=== PATIENT | male | born 1945 | race Caucasian/White ===

== ENCOUNTER 2016-05-10 23:00 | Inpatient (IN) | payer MEDICARE ==
[~2016-05-10] VITALS: Ht 175.3 cm; Wt 63.7 kg
[~2016-05-10 23:00] MED LIST: ASMANEX0.24 GM INH; BACLOFEN10 MG PO; CARDIZEM 90 MG90 MG PO; COZAAR25 MG PO; FUROSEMIDE40 MG PO; GLUCOPHAGE500 MG PO; GLUCOTROL XL 1010 MG PO; K-DUR20 MEQ PO; LIPITOR10 MG PO; OMEPRAZOLE20 M1 PO; SPIRIVA RESPIMAT4 G1 INH; ULTRAM50 MG PO; ZITHROMAX500 MG PO
[2016-05-10 23:48] LABS: BASOPHILS 0.2 % (0.0-2.0); EOSINOPHILS 0.9 % (0-7); HEMATOCRIT 43.9 % (42.0-54.0); HEMOGLOBIN 13.6 g/dL (13.5-17.5); IMMATURE GRANULOCYTES 1.1 % (0-5); MCH 28.5 pg (26.0-34.0); MCV 91.8 fL (80.0-100.0); MEAN PLATELET VOLUME 11.7 fL (7.4-10.4); MONOCYTES 8.5 % (2-11); NEUTROPHILS 70.3 % (40-80); PLATELET COUNT 201 10x3/uL (130-400); RBC 4.78 10x6/uL (4.20-6.10); RDW 13.9 % (11.5-14.5); WBC 15.6 10x3/uL (4.8-10.8)
[2016-05-11] VITALS (26 sets, daily range): BP systolic 114–153; BP diastolic 68–98; Ht 175.3 cm; Wt 63.7 kg
[2016-05-11 00:01] LABS: APTT 28.9 SECONDS (22.8-39.4); INR 1.01 (0.85-1.17); PROTIME 13.1 SECONDS (11.6-15.0)
[2016-05-11 00:13] LABS: ALKALINE PHOSPHATASE 99 U/L (46-116); ALT (SGPT) 37 U/L (10-68); BILIRUBIN - TOTAL 0.41 mg/dL (0.2-1.3); CALC OSMOLALITY 285 mosm/kg (275-300); CALCIUM 8.8 mg/dL (8.5-10.1); CARBON DIOXIDE 33.5 mmol/L (21.0-32.0); CHLORIDE - SERUM 101 mmol/L (98-107); CREATINE KINASE 27 UL (21-232); CREATININE - SERUM 0.5 mg/dL (0.6-1.3); GLUCOSE 218 mg/dL (74-106); POTASSIUM - SERUM 4.5 mmol/L (3.5-5.1); PRO BNP 167 pg/mL (0-125); PROTEIN - SERUM 7.6 g/dL (6.4-8.2); SODIUM 140 mmol/L (136-145); UREA NITROGEN 12 mg/dL (7-18); eGFR NON AFRICAN AMERICAN > 90 mL/min (90-120)
[2016-05-11 00:19] LABS: TROPONIN-I < 0.017 ng/mL (0.000-0.060)
--- NOTE | 2016-05-11 03:00 | NUR ---
RECEIVED PT TO ROOM 2310 FROM ICU. ARRIVED ON STRETCHER WITH 2LO2 FOR TRANSPORT. TRANSFERRED TO BED AND IMMEDIATELY PLACED BACK ON 35% BIPAP HE HAD BEEN ON IN ER. PT WAS QUITE SOB AND USING ACCESSORY MUSCLES. PT CONNECTED TO STANDARD ICU MONITORING AND ALL ALARMS SET. ADMISSION HISTORY AND ASSESSMENT COMPLETED.
--- NOTE | 2016-05-11 03:30 | NUR ---
AND DAUGHTER HERE. CODE WORD ESTABLISHED. STATED HIS MEDICATION WAS ESSENTIALLY THE SAME LAST ADMISSION BUT A FEW CHANGES SHE COULDN'T EXACTLY REMEMBER. TO BRING PT'S MEDICATION BOTTLES WHEN SHE COMES FOR THE 0900 VISIT TODAY TO CONFIRM CURRENT MEDS AND DOSES. [facility] AND REFUSES TRANFER WELL. PT RESPIRATORY STATUS IS LESS LABORED. TOLERATING THE BIPAP WITHOUT DIFFICULTY.
--- NOTE | 2016-05-11 14:16 | NUR ---
05/11/2016 14:13 CM: Case Management CM spoke with patient regarding transfer to [facility] in [place]. Patient does not want to transfer. He requests he stay here at [facility] and use his [facility] benefits. Notified Christiana White.
--- NOTE | 2016-05-11 19:00 | NUR ---
Assessment complete. See flowsheet. Pt awake and resting on back with HOB @ 20 degrees. Respirations unlabored with purse-lip breathing noted. Pt pulled up in bed with HOB elevated to 30 degrees. Pt receiving O2 @ 2L NC. Lung sounds diminished to all jeffrey with expiratory wheezing noted to [place]. HR ST 119BPM with S1S2 auscultated. Radial pulses +2 bilaterally with dorsalis pedis pulses weak/palpable with 1+ pitting edema noted to lower extremities bilaterally. Right forearm PIV site CDI no s/s infection or infiltration with NS infusing @ 5cc/hr KVO rate. Left forearm PIV site CDI; saline locked. Abdomen soft, distended with BS present to all quadrants. SCDs secure bilaterally. Pt urinal within reach on bedside table. Pain denied. Heels bridged. Call light and bedside table within reach. NO request at this time. CPOC.
--- NOTE | 2016-05-11 21:00 | NUR ---
Pt on BIPAP for UDTX and taken off after treatment. Pt denies further needs at this time and self-positions for comfort. VSS. Call light and bedside table remain within pt reach. CPOC.
--- NOTE | 2016-05-11 23:00 | NUR ---
Reassessment complete. See flowsheet. Pt helped to bedpan for large, formed brown BM approx 500cc. NO neuro changes to note. Pt SOB with diminished lung jeffrey. BIPAP back on FiO2 35%. SPO2 97%. HR ST 120s with S1S2 auscultated. PIV sites CDI; unchanged with NO IVF changes to note. BS +. Pt helped up into bed. Partial linen changes completed. NO other changes to note. Pt denies further needs at this time. Call light and bedside table remain within reach. CPOC.
[2016-05-12] VITALS (24 sets, daily range): BP systolic 106–158; BP diastolic 69–100
--- NOTE | 2016-05-12 01:00 | NUR ---
Pt resting quietly with BIPAP mask secure and no s/s pain or distress. Pt allowed to continue resting undisturbed. Call light and bedside table remain within pt reach. VSS. CPOC.
--- NOTE | 2016-05-12 03:00 | NUR ---
Reassessment complete. See flowsheet. Pt resting quietly with BIPAP mask secure @ FiO2 35%. Pt awakens easily to verbal stimulation with no neuro changes to note. Lung sounds remain diminished to all jeffrey. BS +. Pt continues to self-position for comfort. BS +. PIV sites remain CDI no s/s infection with NO IVF changes to note. Pt denies pain or further needs at this time. Call light and bedside table remain within pt reach. CPOC.
--- NOTE | 2016-05-12 04:29 | NUR ---
BIPAP mask off per request to O2 @ 2L NC.
--- NOTE | 2016-05-12 05:00 | NUR ---
Pt resting quietly with VSS. No s/s pain or distress and allowed to continue resting undisturbed. Call light and bedside table remain within reach. CPOC.
[2016-05-12 05:30] LABS: BASOPHILS 0 % (0.0-2.0); EOSINOPHILS 0 % (0-7); HEMATOCRIT 38.9 % (42.0-54.0); HEMOGLOBIN 12.3 g/dL (13.5-17.5); IMMATURE GRANULOCYTES 0.4 % (0-5); LYMPHOCYTES 6.1 % (15-50); MCHC 31.6 g/dL (31.0-37.0); MEAN PLATELET VOLUME 11.7 fL (7.4-10.4); NEUTROPHILS 85.5 % (40-80); RDW 13.6 % (11.5-14.5)
[2016-05-12 05:33] LABS: MCV 88.4 fL (80.0-100.0); PLATELET COUNT 140 10x3/uL (130-400); WBC 6.7 10x3/uL (4.8-10.8)
[2016-05-12 05:36] LABS: CALC OSMOLALITY 286 mosm/kg (275-300); CALCIUM 9.2 mg/dL (8.5-10.1); CARBON DIOXIDE 35.6 mmol/L (21.0-32.0); CHLORIDE - SERUM 100 mmol/L (98-107); CREATININE - SERUM 0.6 mg/dL (0.6-1.3); GLUCOSE 234 mg/dL (74-106); SODIUM 140 mmol/L (136-145); UREA NITROGEN 13 mg/dL (7-18); eGFR NON AFRICAN AMERICAN > 90 mL/min (90-120)
[2016-05-12 05:38] LABS: POTASSIUM - SERUM 3.6 mmol/L (3.5-5.1)
--- NOTE | 2016-05-12 09:30 | NUR ---
PLACED ON 2LPM/NC PER PATIENT REQUEST.
--- NOTE | 2016-05-12 11:29 | NUR ---
PLACED BACK ON BIPAP PER ORIGINAL SETTINGS, PER PATIENT REQUEST.
--- NOTE | 2016-05-12 19:00 | NUR ---
Assessment complete. See flowsheet. Pt awake on BIPAP 15 R12 FiO2 35% secure with no leak noted. Pt orientedx4 and following all commands and conversation with 4/5 strength to all extremities. Trace, non-pitting edema noted to lower extremities. SCDs secure. Lung sounds diminished to all jeffrey. No sternal retractions or labored breathing noted. HOB @ 20 degrees. Pt refusing elevating HOB more at this time. HR ST 118BPM with S1S2 auscultated. Radial pulses +2 with dorsalis pedis pulse weak/palpable. Right forearm PIV site CDI no s/s infection or infiltration with NS @ 5cc/hr KVO Rate. Left forearm PIV site CDI; no s/s infection, saline locked. BS + to all quadrants. Urinal emptied of 275cc clear/sergio urine. Pt self-positioning in bed for comfort. Room warmed per request. No c/o pain and no further request at this time. Call light and bedside table remain within pt reach. CPOC.
--- NOTE | 2016-05-12 21:00 | NUR ---
Pt on 2L NC briefly and back on BIPAP mask after sips of water to rest. NO setting changes to note. NO other changes. Pt remains calm and cooperative and denies further needs at this time. Call light and bedside table remain within reach. CPOC.
--- NOTE | 2016-05-12 23:00 | NUR ---
Reassessment complete. See flowsheet. Pt resting quietly with BIPAP mask secure. VSS. Pt awakens easily to verbal stimulation with no neuro changes to note. SPO2 96%. Lung sounds remain diminished to all jeffrey. HR ST wiht S1S2 auscultated. Radial pulses +2 bilaterally with dorsalis pedis pulses weak/palpable bilaterally. PIV sites remain CDI no s/s infection or infiltration with NO IVF changes to note. BS +. SCDs secure. Pt continues to self-position for comfort. Pt denies pain or further needs at this time. Call light, bedside table, and urinal remain within pt reach. CPOC.
[2016-05-13] VITALS (23 sets, daily range): BP systolic 96–168; BP diastolic 64–98
--- NOTE | 2016-05-13 01:00 | NUR ---
Pt resting quietly on BIPAP with VSS. No s/s pain or distress and allowed to continue resting. Call light and bedside table remain within pt reach. CPOC.
--- NOTE | 2016-05-13 03:00 | NUR ---
Reassessment complete. See flowsheet. Pt resting quietly with BIPAP mask secure. VSS. Pt awakens easily to verbal stimulation with no neuro changes to note. SPO2 97%. Lung sounds remain diminished to all jeffrey. HR ST with S1S2 auscultated. Radial pulses +2 bilaterally with dorsalis pedis pulses weak/palpable bilaterally. PIV sites remain CDI no s/s infection or infiltration with NO IVF changes to note. BS +. SCDs secure. Pt continues to self-position for comfort. Pt denies pain or further needs at this time. Call light, bedside table, and urinal remain within pt reach. CPOC.
--- NOTE | 2016-05-13 05:00 | NUR ---
Pt self-positioned to left side and resting quietly with BIPAP mask secure. VSS. No s/s pain or distress and allowed to continue resting undisturbed. Call light and bedside table remain within pt reach. CPOC.
[2016-05-13 05:36] LABS: BASOPHILS 0 % (0.0-2.0); EOSINOPHILS 0 % (0-7); HEMATOCRIT 40.4 % (42.0-54.0); IMMATURE GRANULOCYTES 0.5 % (0-5); LYMPHOCYTES 5.3 % (15-50); MCH 28.3 pg (26.0-34.0); MCHC 32.2 g/dL (31.0-37.0); MCV 87.8 fL (80.0-100.0); MEAN PLATELET VOLUME 11.6 fL (7.4-10.4); MONOCYTES 5.9 % (2-11); NEUTROPHILS 88.3 % (40-80); PLATELET COUNT 135 10x3/uL (130-400); RDW 13.7 % (11.5-14.5); WBC 6.4 10x3/uL (4.8-10.8)
[2016-05-13 06:00] LABS: ALBUMIN 3.2 g/dL (3.4-5.0); ALKALINE PHOSPHATASE 69 U/L (46-116); ALT (SGPT) 38 U/L (10-68); BILIRUBIN - TOTAL 0.43 mg/dL (0.2-1.3); CALC OSMOLALITY 288 mosm/kg (275-300); CARBON DIOXIDE 36.4 mmol/L (21.0-32.0); CHLORIDE - SERUM 101 mmol/L (98-107); CREATININE - SERUM 0.7 mg/dL (0.6-1.3); GLUCOSE 210 mg/dL (74-106); POTASSIUM - SERUM 3.8 mmol/L (3.5-5.1); PRO BNP 882 pg/mL (0-125); PROTEIN - SERUM 6.5 g/dL (6.4-8.2); SODIUM 142 mmol/L (136-145); UREA NITROGEN 13 mg/dL (7-18); eGFR NON AFRICAN AMERICAN > 90 mL/min (90-120)
--- NOTE | 2016-05-13 07:20 | NUR ---
PATIENT EXTREMELY ANXIOUS, HR 150 TO 192 BP 177/[address] NORTH WITH NEW ORDERS RECD. AND NOTED.
--- NOTE | 2016-05-13 07:38 | NUR ---
MUCH MORE CALM, PB 118/92 PULSE 123 O2 SAT 97%
--- NOTE | 2016-05-13 14:06 | NUR ---
NO CHANGE NOTED
--- NOTE | 2016-05-13 15:00 | NUR ---
NO CHANGES NOTED
--- NOTE | 2016-05-13 19:30 | NUR ---
ASSESSMENT COMPLETE. S1S2. RR SHALLOW DIMINISHED BILATERALLY IN UPPER LOBES; ABSENT BILATERALLY IN LOWER LOBES. SINUS TACHYCARDIA SHOWING ON MONITOR. AAO. PERRLA. RADIAL PULSES +2; PEDAL PULSES +1. BIPAP @ 35%; O2 SAT 96%. VSS. CALL LIGHT IN REACH. WILL CONTINUE TO MONITOR.
--- NOTE | 2016-05-13 20:57 | NUR ---
FAMILY AT BEDSIDE. UPDATE GIVEN.
--- NOTE | 2016-05-13 23:00 | NUR ---
REASSESSMENT COMPLETE. NO CHANGES FROM PREVIOUS ASSESSMENT. WILL CONTINUE TO MONITOR.
[2016-05-14] VITALS (24 sets, daily range): BP systolic 119–150; BP diastolic 77–101
--- NOTE | 2016-05-14 01:43 | NUR ---
PT RESTING; EYES CLOSED. VSS. NO DISTRESS NOTED. CALL LIGHT IN REACH. WILL CONTINUE TO MONITOR.
--- NOTE | 2016-05-14 02:15 | NUR ---
PT ON 2L VIA NC. O2 SAT 97%
--- NOTE | 2016-05-14 03:10 | NUR ---
PT REQUESTED TO GO BACK ONTO BIPAP; SAT WAS 97% BEFORE AND AFTER CHANGE FROM NC TO BIPAP.
--- NOTE | 2016-05-14 03:30 | NUR ---
REASSESSMENT COMPLETE. NO CHANGES FROM PREVIOUS ASSESSMENT.
[2016-05-14 03:49] LABS: BASOPHILS 0 % (0.0-2.0); EOSINOPHILS 0 % (0-7); HEMOGLOBIN 12.6 g/dL (13.5-17.5); IMMATURE GRANULOCYTES 0.5 % (0-5); LYMPHOCYTES 4.2 % (15-50); MCH 27.6 pg (26.0-34.0); MCHC 31.5 g/dL (31.0-37.0); MCV 87.5 fL (80.0-100.0); MEAN PLATELET VOLUME 11.8 fL (7.4-10.4); MONOCYTES 9.1 % (2-11); NEUTROPHILS 86.2 % (40-80); PLATELET COUNT 130 10x3/uL (130-400); RBC 4.57 10x6/uL (4.20-6.10); RDW 13.7 % (11.5-14.5); WBC 6.3 10x3/uL (4.8-10.8)
[2016-05-14 03:54] LABS: CALC OSMOLALITY 290 mosm/kg (275-300); CALCIUM 8.8 mg/dL (8.5-10.1); CHLORIDE - SERUM 103 mmol/L (98-107); CREATININE - SERUM 0.6 mg/dL (0.6-1.3); GLUCOSE 204 mg/dL (74-106); POTASSIUM - SERUM 3.4 mmol/L (3.5-5.1); SODIUM 142 mmol/L (136-145); UREA NITROGEN 19 mg/dL (7-18); eGFR NON AFRICAN AMERICAN > 90 mL/min (90-120)
--- NOTE | 2016-05-14 10:45 | NUR ---
NUTRITION MONITORING & EVAL CHART REVIEWED. PT REMAINS ON BIPAP. REG DIET BUT POOR INTAKE R/T BIPAP. WILL CONTINUE TO MONITOR PT PROGRESS. RD FOLLOWING
--- NOTE | 2016-05-14 19:30 | NUR ---
ASSESSMENT COMPLETE. S1S2. RR SHALLOW DIMINISHED BILATERALLY IN UPPER LOBES; ABSENT BILATERALLY IN LOWER LOBES. AAO. PERRLA. ON BIPAP @ 35%; O2 SAT 97% SINUS TACHYCARDIA SHOWING ON MONITOR. RADIAL PULSES +2; PEDAL PULSES +1.
--- NOTE | 2016-05-14 19:40 | NUR ---
PT REQUEST TO BE PLACED ON NC AT THIS TIME.
--- NOTE | 2016-05-14 19:50 | NUR ---
PT PLACED BACK BIPAP @ 30%
--- NOTE | 2016-05-14 22:50 | NUR ---
REASSESSMENT COMPLETE. NO CHANGES FROM PREVIOUS ASSESSMENT. PT RESTING; EYES CLOSED. VSS. CALL LIGHT IN REACH. WILL CONTINUE TO MONITOR.
--- NOTE | 2016-05-14 23:30 | NUR ---
PT REQUEST TO GO ONTO NC
[2016-05-15] VITALS (13 sets, daily range): BP systolic 122–157; BP diastolic 81–97
--- NOTE | 2016-05-15 | NUR ---
PT PLACED BACK ON BIPAP AT 30%; SATS DECREASED TO 88% WHILE ON NC. PT C/O SHORTNESS OF BREATH.
--- NOTE | 2016-05-15 01:45 | NUR ---
PT RESTING; EYES CLOSED. CALL LIGHT IN REACH. NO DISTRESS NOTED. VSS. WILL CONTINUE TO MONITOR.
--- NOTE | 2016-05-15 03:30 | NUR ---
PT REQUESTED TO BE PLACE ON O2 VIA NC.
--- NOTE | 2016-05-15 04:01 | NUR ---
REASSESSMENT COMPLETE. NO CHANGES FROM PREVIOUS ASSESSMENT. SEE FLOW SHEET FOR DETAILS.
[2016-05-15 04:19] LABS: BASOPHILS 0 % (0.0-2.0); EOSINOPHILS 0 % (0-7); HEMATOCRIT 41.7 % (42.0-54.0); HEMOGLOBIN 13.1 g/dL (13.5-17.5); IMMATURE GRANULOCYTES 0.5 % (0-5); LYMPHOCYTES 5.7 % (15-50); MCH 27.7 pg (26.0-34.0); MCHC 31.4 g/dL (31.0-37.0); MCV 88.2 fL (80.0-100.0); MEAN PLATELET VOLUME 12.7 fL (7.4-10.4); MONOCYTES 4.9 % (2-11); NEUTROPHILS 88.9 % (40-80); PLATELET COUNT 134 10x3/uL (130-400); RBC 4.73 10x6/uL (4.20-6.10); RDW 13.5 % (11.5-14.5); WBC 7.5 10x3/uL (4.8-10.8)
--- NOTE | 2016-05-15 04:55 | NUR ---
COMPLETE BEDBATH; PARTIAL PT ASSISTANCE. COMPLETE LINEN CHANGE. LOTION APPLIED TO SKIN; SKIN DRIED. BRUISING NOTED ON BILATERAL UPPER EXTREMITIES; GENERALIZED.
[2016-05-15 04:56] LABS: CALC OSMOLALITY 289 mosm/kg (275-300); CALCIUM 8.8 mg/dL (8.5-10.1); CARBON DIOXIDE 32.3 mmol/L (21.0-32.0); CHLORIDE - SERUM 103 mmol/L (98-107); CREATININE - SERUM 0.7 mg/dL (0.6-1.3); GLUCOSE 203 mg/dL (74-106); MAGNESIUM - SERUM 2.1 mg/dL (1.8-2.4); POTASSIUM - SERUM 4.1 mmol/L (3.5-5.1); SODIUM 141 mmol/L (136-145); UREA NITROGEN 21 mg/dL (7-18); eGFR NON AFRICAN AMERICAN > 90 mL/min (90-120)
--- NOTE | 2016-05-15 05:30 | NUR ---
PT PLACED BACK ON BIPAP @ 35%
--- NOTE | 2016-05-15 06:12 | NUR ---
FAMILY AT BEDSIDE. UPDATE GIVEN.
--- NOTE | 2016-05-15 07:00 | NUR ---
PT REPORT REC'D, PT CARE ASSUMED. PT SITTING UP IN BED ON BIPAP, PT AAOX4. NO C/O PAIN, VSS. RIGHT FOREARM PIV WITH FLUIDS INFUSING, SEE FLOW SHEET. LEFT FOREARM IV S/L, DRESSING PATENT, CDI. BEDSIDE URINAL NEEDED. SCD'S. BILAT PEDAL PULSES PALPABLE. SHIFT ASSESSMENT COMPLETED, SEE FLOW SHEET. ROOM FREE OF CLUTTER, CALL LIGHT IN REACH. WILL CONTINUE TO MONITOR PT.
--- NOTE | 2016-05-15 07:30 | NUR ---
RT SWITCHED PT FROM BIPAP TO NC, OFFERED PT BREAKFAST TRAY, PT REFUSED "I DON'T WANT IT RIGHT NOW" WILL TRY AGAIN LATER.
--- NOTE | 2016-05-15 09:14 | NUR ---
PT C/O FEELING SOB, REQUESTING TO BE PUT BACK ON BIPAP, PT O2 SAT 94% ON NC, BIPAP ON, PT O2 SAT 97%. PT STATES "THAT FEELS BETTER". WILL CONTINUE TO MONITOR PT.
--- NOTE | 2016-05-15 09:22 | NUR ---
Patient Name: JOHANNY DONOHUE Admission Status: ER Accout number: [id number] Admission Date: 05-11-2016 : 1945 Admission Diagnosis:RESPIRATORY FAILURE, UNSP, UNSP W HYPOXIA OR HYPERCAPNI Attending: ABELINO Current LOS: 4 Anticipated DC Date: 05-21-2016 Planned Disposition: Home Primary Insurance: MEDICARE PART A ONLY Discharge Planning Comments: CM MET WITH PATIENT REGARDING D/C NEEDS AND PLANS. PATIENT STATED HE LIVES WITH HIS RUKHSANA. THEY HAVE A RAMP TO ENTER THEIR HOME AND NO STAIRS ONCE INSIDE. PATIENT STATED HE IS INDEPENDENT WITH HIS CARE AND HAS A WALKER, WHEELCHAIR, CANE, SHOWER CHAIR, BS COMMODE, NEBULIZER, OXYGEN, PORTABLE OXYGEN, AND GULCOMETER AT HOME. PATIENT CHECKS HIS BLOOD SUGAR 1X DAILY. PATIENTS OXYGEN IS SUPPLIED BY [facility] WITH A COMPANY OUT OF CENTER (COULD NOT REMEMBER NAME). PATIENTS PCP IS DR. BRUNO AT [facility] [place] AND USES THE [facility] BUT FOR NEW SCRIPTS HE USES [facility]. PATIENT STATED HE DID NOT WANT THE [facility] IN [place] UNDER NO CIRCUMSTANCES. CM WILL CONTINUE TO FOLLOW PATIENT WITH D/C NEEDS AND PLANS. PCP DR. BRUNO [facility] - [phone] LEAH (SON) H [phone] C [phone] ANA (DAUGHTER) W [phone] C [phone] RUKHSANA () [phone] Relay Assembler: Na King Is the patient Alert and Oriented? Yes 0 * How many steps to enter\exit or inside your home? RAMP 0 * PCP DR[facility] BRUN[facility] [place] 0 * Pharmacy [facility] 0 * Preadmission Environment Home with Family 0 * ADLs Independent 0 * Equipment Bedside Commode Cane Glucometer Nebulizer Oxygen Shower Chair Walker Wheelchair 0 * Other Equipment PORTABLE O2 0 * List name and contact numbers for known caregivers / representatives who currently or will assist patient after discharge: LEAH (SON) H [phone] C [phone] ANA (DAUGHTER) W [phone] C [phone] RUKHSANA () [phone] * Community resources currently utilized None 0 * Additional services required to return to the preadmission environment? Yes 0 * Can the patient safely return to the preadmission environment? Yes 0 * Has this patient been hospitalized within the prior 30 days at any hospital? No 0 Grand Total: 0
--- NOTE | 2016-05-15 10:15 | NUR ---
DR. HAMMOND AT THE BEDSIDE, [facility], WILL CONTINUE TO ALFONSO PT.
--- NOTE | 2016-05-15 15:07 | NUR ---
PT REPORT CALLED TO MARK SUERO, PT TO TRANSFER VIA WHEELCHAIR TO ROOM 2103. CONTACTED PTS TO INFORM OF PT TRANSFERRING TO ROOM 2103, LEFT MESSAGE INFORMING OF PT'S ROOM. RLiz
--- NOTE | 2016-05-15 15:31 | NUR ---
RECEIVED VIA WHEELCHAIR AND PORTABLE OXYGEN. SALINE LOCK SEEN TO LEFT FA, IV INFUSING WITH ABX TO RIGHT FA. VSS/ BILATERL SCD'S REMOVED, SKIN ASSESSED, SCD'S REPLACED. PAST VITAL SIGNS, PATIENT WANTED ON BIPAP, PLACED HIM ON IT. CALL LIGHT AT SIDE. WILL MONITOR. NO SKIN ISSUES SEEN TO BUTTOCK.
--- NOTE | 2016-05-15 16:01 | NUR ---
CALLED TO ROOM, PATIENT WANTING HIS BIPAP OFF AND HIS NASAL CANNULA ON.
--- NOTE | 2016-05-15 19:30 | NUR ---
IN BED LYING PRONE WITH HOB UP SR UP X2, C/L IN REACH. RESP UNLAWITH O2 @ 4L VIA NC IN USE. RT FA IV SITE WITH NO RS NOTED AT SITE, NS INFUSING W/O DIFF VIA PUMP AT [facility]. LEFT FA SL INTACT WITH NO R/S NOTED AT SITE. USING URINAL W/O DIFF. BIPAP AT BEDSIDE FOR USE IF NEEDED. DENIES NEEDS AT THIS TIME. CONTINUE TO MONITOR.
[2016-05-16] VITALS (7 sets, daily range): BP systolic 100–140; BP diastolic 62–95
[2016-05-16 05:36] LABS: BASOPHILS 0.1 % (0.0-2.0); EOSINOPHILS 0.1 % (0-7); HEMATOCRIT 38.8 % (42.0-54.0); HEMOGLOBIN 12.5 g/dL (13.5-17.5); IMMATURE GRANULOCYTES 1.3 % (0-5); LYMPHOCYTES 15.9 % (15-50); MCHC 32.2 g/dL (31.0-37.0); MEAN PLATELET VOLUME 12.3 fL (7.4-10.4); MONOCYTES 13.6 % (2-11); PLATELET COUNT 145 10x3/uL (130-400); RBC 4.46 10x6/uL (4.20-6.10); RDW 13.8 % (11.5-14.5); WBC 8.6 10x3/uL (4.8-10.8)
[2016-05-16 05:47] LABS: CALC OSMOLALITY 285 mosm/kg (275-300); CALCIUM 8.4 mg/dL (8.5-10.1); CARBON DIOXIDE 33.7 mmol/L (21.0-32.0); CHLORIDE - SERUM 105 mmol/L (98-107); CREATININE - SERUM 0.7 mg/dL (0.6-1.3); POTASSIUM - SERUM 3.5 mmol/L (3.5-5.1); SODIUM 142 mmol/L (136-145); UREA NITROGEN 18 mg/dL (7-18); eGFR NON AFRICAN AMERICAN > 90 mL/min (90-120)
[2016-05-16 05:49] LABS: GLUCOSE 119 mg/dL (74-106)
--- NOTE | 2016-05-16 08:16 | NUR ---
AM ROUNDING DONE WITH PATIENT DENING ANY COMPLAINTS. STATES THAT HE SLEPT WELL LAST NIGHT. ON 4L PER NC. RIGHT FA SEEN WITH NS INFUSING AT KVO, LEFT FA SALINE LOCK. BIPAP IS SEEN AT BEDSIDE. BILATERAL SCD'S ARE IN USE. WILL CONTINUE TO MONITOR.
--- NOTE | 2016-05-16 09:00 | NUR ---
PLACED ON BIPAP PER PATIENT REQUEST. AM MEDS GIVEN.
--- NOTE | 2016-05-16 13:36 | NUR ---
Nutrition follow-up: Diet: Regular as tolerated PO intake ~25% of meals RDN helped pt fill out todays menus. Pt states he is not eating very much due to he has no appetite. Noted pt is back on BIPAP at this time. Pt would benefit from an appetite stimulant if physician agrees. Will continue to provide food choices and encourage increased po intake. RDN will order Ensure with meals. Following.l
--- NOTE | 2016-05-16 17:54 | NUR ---
ON NASAL CANNULA, DENIES NEEDS PAST SUPPER. CALL LIGHT AT SIDE, WILL CONTINUE TO FOLLOW.
--- NOTE | 2016-05-16 19:42 | NUR ---
Recieved patient sitting up in bed, watching TV, denies discomfort or pain, alert and oriented x 4, Right forearm PIV infusing NS @5ml/hr, Left forearm PIV is SL, Oxygen is on @ 4L/min, SCDs on at this time.
--- NOTE | 2016-05-16 21:53 | NUR ---
HS BG = 162, given 2 Units regular sliding scale insulin.
--- NOTE | 2016-05-17 01:13 | NUR ---
Resting quietly at this time, deemed to be sleeping, respirations easy and regular.
[2016-05-17 01:21] VITALS: BP 119/70
[2016-05-17 04:00] VITALS: BP 120/77
[2016-05-17 05:38] LABS: CALCIUM 8.4 mg/dL (8.5-10.1); CARBON DIOXIDE 30.2 mmol/L (21.0-32.0); CHLORIDE - SERUM 103 mmol/L (98-107); CREATININE - SERUM 0.6 mg/dL (0.6-1.3); SODIUM 139 mmol/L (136-145); UREA NITROGEN 21 mg/dL (7-18); eGFR NON AFRICAN AMERICAN > 90 mL/min (90-120)
[2016-05-17 05:44] LABS: BASOPHILS 0 % (0.0-2.0); EOSINOPHILS 0 % (0-7); HEMATOCRIT 39.1 % (42.0-54.0); HEMOGLOBIN 12.7 g/dL (13.5-17.5); IMMATURE GRANULOCYTES 1.9 % (0-5); LYMPHOCYTES 7.7 % (15-50); MCHC 32.5 g/dL (31.0-37.0); MCV 86.3 fL (80.0-100.0); MEAN PLATELET VOLUME 12.2 fL (7.4-10.4); MONOCYTES 4.5 % (2-11); NEUTROPHILS 85.9 % (40-80); PLATELET COUNT 141 10x3/uL (130-400); RBC 4.53 10x6/uL (4.20-6.10); RDW 13.7 % (11.5-14.5)
[2016-05-17 05:46] LABS: CALC OSMOLALITY 286 mosm/kg (275-300); GLUCOSE 200 mg/dL (74-106); POTASSIUM - SERUM 4.4 mmol/L (3.5-5.1)
[2016-05-17 05:47] LABS: WBC 5.3 10x3/uL (4.8-10.8)
--- NOTE | 2016-05-17 08:06 | NUR ---
AM ROUNDING DONE, PATIENT IS ON BIPAP AT PRESENT TIME. DENIES NEEDS. LEFT FA SEEN WITH SALINE LOCK, RIGHT FA WITH NS INFUSING 10 CC. ON EP, LAB VALUES ARE GOOD. ENCOURAGED TO COUGH TO CLEAR LUNGS, STILL WITH WHEEZES UNTIL CLEARED. WILL CONTINUE TO MONITOR.
[2016-05-17 08:45] VITALS: BP 136/73
--- NOTE | 2016-05-17 09:46 | NUR ---
0946: RIGHT FA IV INFILTRATED. REMOVED IV, CATH INTACT, 2X2 GAUZE APPLIED WITH TAPE, PATIENT TOLERATED WELL. WILL CONTINUE TO MONITOR.
--- NOTE | 2016-05-17 12:26 | NUR ---
CALL BACK FROM DR HAMM, WILL BOLUS WITH 500 CC NS AND CONTINUE TO MONITOR BLOOD PRESSURE. WILL HOLD LASIX AND ALL BLOOD PRESSURE MEDS.
--- NOTE | 2016-05-17 12:29 | NUR ---
JEANIE FOSTER TO CALL AND MADE AWARE OF THE SITUATION.
[2016-05-17 12:38] VITALS: BP 132/69
[2016-05-17 16:07] VITALS: BP 116/59
--- NOTE | 2016-05-17 18:09 | NUR ---
PULM ENTERED CONSULT FOR PT TO HAVE NIPPV AT [place]. PT HAS [facility] BENEFITS AND WILL REQUIRE BIPAP TO BE ARRANGED THROUGH THE [facility]. VA HOME OXYGEN COORDINATOR, RADHA WILKINS, WAS CONTACTED TO START BIPAP ORDER PROCESS AND HE TRANSFERRED CM TO VA BIPAP BUILDING CLEANER JACK ROBERSON. CM LEFT VM FOR JACK ROBERSON TO RETURN CALL AND ATTEMPTED TO INQUIRE WHAT ALL VA REQUIRES FOR BIPAP TO BE [place] [address]/17/16. RADHA WILKINS: [phone] JACK ROBERSON: [phone]
[2016-05-17 20:00] VITALS: BP 118/69
[2016-05-18] VITALS: BP 105/73
[2016-05-18 04:00] VITALS: BP 121/71
[2016-05-18 05:43] LABS: BASOPHILS 0.1 % (0.0-2.0); EOSINOPHILS 0 % (0-7); HEMATOCRIT 39.3 % (42.0-54.0); HEMOGLOBIN 12.6 g/dL (13.5-17.5); IMMATURE GRANULOCYTES 1.5 % (0-5); LYMPHOCYTES 4.9 % (15-50); MCH 27.8 pg (26.0-34.0); MCHC 32.1 g/dL (31.0-37.0); MCV 86.6 fL (80.0-100.0); MEAN PLATELET VOLUME 12.3 fL (7.4-10.4); MONOCYTES 4.7 % (2-11); NEUTROPHILS 88.8 % (40-80); PLATELET COUNT 163 10x3/uL (130-400); RBC 4.54 10x6/uL (4.20-6.10); RDW 13.8 % (11.5-14.5)
[2016-05-18 05:45] LABS: WBC 10.1 10x3/uL (4.8-10.8)
[2016-05-18 05:48] LABS: CALC OSMOLALITY 292 mosm/kg (275-300); CALCIUM 8.8 mg/dL (8.5-10.1); CARBON DIOXIDE 32.6 mmol/L (21.0-32.0); CHLORIDE - SERUM 105 mmol/L (98-107); CREATININE - SERUM 0.7 mg/dL (0.6-1.3); GLUCOSE 168 mg/dL (74-106); POTASSIUM - SERUM 4.3 mmol/L (3.5-5.1); SODIUM 143 mmol/L (136-145); UREA NITROGEN 25 mg/dL (7-18); eGFR NON AFRICAN AMERICAN > 90 mL/min (90-120)
[2016-05-18 08:56] VITALS: BP 125/70
[2016-05-18 12:00] VITALS: BP 113/101
[2016-05-18] MEDS ORDERED: PREDNISONE10 MG PO (15:54)
[2016-05-18] MEDS ORDERED: DALIRESP500 MCG PO (15:54)
[2016-05-18] MEDS ORDERED: IPRAT-ALBUT 0.5-3 ML INH (15:55)
--- NOTE | 2016-05-18 16:55 | NUR ---
DISCHARGE INSTRUCTIONS EXPLAINED AND GIVEN TO PT. D/C SALINE LOCK IN LT FOREARM WITH 2X2 AND TAPE APPLIED.
--- NOTE | 2016-05-18 17:03 | NUR ---
BS 68 AFTER EATING 2 CUPS OF VANILLA ICE CREAM. ENCOURAGE TO EAT DINNER.
[2016-05-18 17:41] VITALS: BP 107/62
--- NOTE | 2016-05-18 18:34 | NUR ---
DC HOME VIA WHEELCHAIR WITH FAMILY. ALERT.
--- NOTE | 2016-05-25 13:49 | CN ---
PATIENT NAME:JOHANNY CADE MEDICAL RECORD: [id number] : 49 LOCATION:[facility] D.2104 ADMIT DATE: 05/11/16 ACCOUNT: [id number] CONSULTING PHYSICIAN: DARREN NOLAN MD REFERRING PHYSICIAN: MOISES LOBO MD DATE OF CONSULTATION: 05/11/2016 Consultation Note CONSULT REQUESTING PHYSICIAN: Moises Lobo MD. REASON FOR CONSULTATION: Wnirc-xk-[id number] hypoxic hypercapnic respiratory failure and respiratory acidosis. HISTORY OF PRESENT ILLNESS: Mr. Cade is a 70-year-old gentleman, who has a history of COPD. According to the patient, he is sick for the last few days. He was coughing. He was wheezing and shortness of breath. Yesterday, he became very lethargic and could not breathe; has home nebulizer, were not helping. The patient was brought into the ER. He was found that his pH is 7.12, SpO2 was 103. Now, he is more awake and alert. REVIEW OF SYSTEMS: CONSTITUTIONAL: He has no fever and chills. HEENT: Sinus congestion. RESPIRATORY: As in history of present illness. CARDIOVASCULAR: Negative. GASTROINTESTINAL: Negative. GENITOURINARY: Negative. Other review of the systems is negative. PAST MEDICAL HISTORY: 1. Diabetes mellitus. 2. Congestive heart failure, chronic diastolic dysfunction. 3. Hypertension. 4. COPD. PAST SURGICAL HISTORY: Nonsignificant. ALLERGIES: HE IS ALLERGIC TO PENICILLIN AND TETRACYCLINE. PRESENT MEDICATIONS: On Sevenpop was reviewed. PERSONAL AND SOCIAL HISTORY: The patient is an ex-smoker. He is a nondrinker. FAMILY HISTORY: Significant for lung disease. PHYSICAL EXAMINATION: GENERAL: Now, the patient is lying comfortably in bed. He is not in acute distress. VITAL SIGNS: The blood pressure is 117/72, pulse is 106, respiration is 29, temperature is 98, and SpO2 is 95% on BiPAP at 35% oxygen. HEENT: Conjunctiva is pink. Sclera is nonicteric. NECK: Supple. No JVD. CHEST: There are bilateral crackles, wheeze on forceful expiration. HEART: Rhythm regular, normal sound, no murmur. CONSULT REPORT [id number] JOHANNY CADE ABDOMEN: Abdomen is soft. Bowel sounds are present. No hepatosplenomegaly. RECTAL: Deferred. EXTREMITIES: No cyanosis, no clubbing. There is 2+ pedal edema. SKIN: The skin is warm. Normal turgor. CENTRAL NERVOUS SYSTEM: The patient is awake and alert. There is no obvious cranial nerve abnormality. The gait was not tested. IMPRESSION: 1. Oiekm-eg-tcddyjc hypoxic hypercapnic respiratory failure. 2. Respiratory acidosis secondary to xvibi-oo-qptydzl hypoxic hypercapnic respiratory failure. 3. Pneumonia, bilateral, most likely community-acquired pneumonia. 4. Leukocytosis. 5. Congestive heart failure with chronic diastolic dysfunction. RECOMMENDATION: 1. I will start him on Levaquin. I will discontinue vancomycin. Continue the cefepime. 2. Methylprednisolone IV. 3. Albuterol ipratropium nebulizer. 4. Budesonide and Brovana nebulizer. 5. Supplemental oxygen as required. 6. Continue the BiPAP, rest the patient when the patient is eating. Check the ammonia level. 7. Follow up labs and chest radiograph in the morning. Dr. Lobo, once again thanks for involving me in the care of Mr. Cade. TRANSINT:[id number] Voice Confirmation ID: [id number] DOCUMENT ID: [id number] DARREN NOLAN MD at 1349 CC: MOISES LOBO MD [id number] DICTATION DATE: 05/11/16 1129 MASSEUR/MASSEUSE: 05/11/16 1839 DIS IN 05/18/16 [place] [id number] [place] [address]
--- NOTE | 2016-06-28 15:50 | DS ---
PATIENT:JOHANNY DONOHUE :49 MEDICAL RECORD: [id number] DISCHARGE SUMMARY ADMISSION DATE: 05/11/16 DISCHARGE DATE: 05/18/16 DATE OF ADMISSION: 05/11/2016 DATE OF DISCHARGE: 05/18/2016 ADMITTING DIAGNOSES: Community-acquired pneumonia, chronic obstructive pulmonary disease, emphysema, diabetes mellitus, hyperlipidemia and respiratory failure. 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 Matt Villanueva, admitted with diagnoses as outlined above. Details are well-outlined in the history of the present illness, H&P. All events, lab procedures, diagnostic testing are well documented in the records. The patient was admitted, started on antibiotics, Protonix drip, electrolytes protocol, Lovenox for DVT prophylaxis. Appropriate home medicines continued. CONSULTANTS: Dr. Cheatham with pulmonary. His recommendations were followed. Overall, the patient improved. He was found stable for dismissal home. He was mobilized, was ambulating. Blood sugars felt to be stable. 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 He apparently had a civilian PCP and [place] PCP. Please refer to med rec. He is dismissed home. DIAGNOSES: Community-acquired pneumonia, acute on chronic respiratory failure, chronic obstructive pulmonary disease exacerbation, type 2 diabetes mellitus with hyperglycemia, diabetes and hypertension. Greater than 30 minutes was spent on this discharge. TRANSINT:[id number] Voice Confirmation ID: [id number] DOCUMENT ID: [id number] Dictated By: ANGELA WARREN RN I have interviewed/examined the above patient and agree with these documented findings. NOLAN HAMMOND DO at 1012 at 1550 CC: [id number] DICTATION DATE: 06/27/16 1557 PRODUCTION POTTER: 06/28/16 1231 DIS IN 05/18/16 [place] [id number] [place] [id number]
== END 2016-05-18 18:35 | disposition home or self-care (01) | DRG 189 ==
LOC: D.ER 23:00 → D.ICU 05-11 00:33 → D.M2 05-11 00:33
PROVIDERS: Emergency Medicine; Family Medicine; Internal Medicine Pulmonary Disease; ADMIT Family Medicine Adult Medicine
PROC: 5A09557 Assistance with Respiratory Ventilation, Greater than 96 Consecutive Hours, Continuous Positive Airway Pressure (ICD-10-PCS; principal; 2016-05-10)
DX: J96.21 Acute and chronic respiratory failure with hypoxia (principal); J18.9 Pneumonia, unspecified organism; J44.0 Chronic obstructive pulmonary disease with (acute) lower respiratory infection; J44.1 Chronic obstructive pulmonary disease with (acute) exacerbation; I50.32 Chronic diastolic (congestive) heart failure; E87.2 Acidosis; J96.22 Acute and chronic respiratory failure with hypercapnia; E11.65 Type 2 diabetes mellitus with hyperglycemia; I11.0 Hypertensive heart disease with heart failure; I25.10 Atherosclerotic heart disease of native coronary artery without angina pectoris; E87.6 Hypokalemia; Z95.5 Presence of coronary angioplasty implant and graft